=== PATIENT | female | born 1950 | race Caucasian/White ===

== ENCOUNTER 2020-07-16 03:23 | Observation (INO) | payer OTHER ==
[~2020-07-16] VITALS: Ht 167.6 cm; Wt 83.0 kg
[~2020-07-16 03:23] MED LIST: FENOFIBRATE54 M1; LAC PO; LEVOTHYROXIN0.025 M2; LEVOTHYROXIN0.025 M2 PO; LOMOTIL1 TAB PO; MAC100 PO; PRILOSEC OTC20 M1 PO; PRILOSEC20 MG; TRAZODONE50 M1 PO; TRICOR48 M1 PO; ZES10 PO; ZOF4 PO
[2020-07-16 07:14] LABS: CALCIUM 9.3 mg/dL (8.5-10.1); CARBON DIOXIDE 21.3 mmol/L (21-32); CHLORIDE SERUM 101 mmol/L (98-107); CREATININE SERUM 0.9 mg/dL (0.6-1.0); GFR1 > 60 mL/min; GLUCOSE SERUM 130 mg/dL (74-106); POTASSIUM SERUM 3.7 mmol/L (3.5-5.1); SODIUM SERUM 137 mmol/L (136-145)
[2020-07-16 07:22] LABS: ALBUMIN 3.8 g/dL (3.4-5.0); ALKALINE PHOSPHATASE 64 U/L (46-116); ALT/SGPT 39 U/L (14-59); AST/SGOT 32 U/L (15-37); BILIRUBIN TOTAL 0.31 mg/dL (0.20-1.00); MAGNESIUM 2.2 mg/dL (1.8-2.4); TOTAL PROTEIN, SERUM 7.8 g/dL (6.4-8.2)
--- NOTE | 2020-07-16 07:35 | NUR ---
REPORT GIVEN TO ADITI GARCIA
[2020-07-16 07:53] LABS: BASOPHIL % 0.2 % (0.2-1.3); PLATELET COUNT 377 x10^3mcL (179-408); RED CELL DISTRIBUTION WIDTH 13.6 % (12.3-17.7)
--- NOTE | 2020-07-16 08:23 | NUR ---
PT AWAKE, ALERT, RESP E/U. PT DENIES ANY CHEST PAIN, PALPITATIONS OR DIZZINESS. ON FULL CM, PULSE OX. IN CLEAR VIEW OF NURSING STATION.
--- NOTE | 2020-07-16 11:08 | NUR ---
PT MEDICATED PER ORDERS. PT IS AWAKE, ALERT, RESP E/U WITH NAD NOTED. SPOKE WITH PTS DAUGTHER AND PROVIDED UPDATE REGARDING PTS STATUS
--- NOTE | 2020-07-16 13:52 | NUR ---
PT AMBULATED TO THE RESTROOM.
--- NOTE | 2020-07-16 14:29 | NUR ---
PT REPORTING NAUSEA. WILL MEDICATE WITH IVP ZOFRAN
--- NOTE | 2020-07-16 19:35 | NUR ---
RECEIVED BEDSIDE REPORT FROM ADITI GARCIA. PATIENT AWAKE, ALERT, ORIENTED TIMES 4. NO COMPLAINT OF PAIN. BP 128/82 MAP 97. DATA SERVICES DEVELOPER SHOWS SINUS RHYTHM RATE 82/MIN. RESPIRATORY RATE 19/MIN.
--- NOTE | 2020-07-16 20:00 | NUR ---
RECEIVED PATIENT POST BEDSIDE REPORT. PATIENT ALERT, ORIENTED TIMES 4. DENIES PAIN. NO DYSPNEA PRESENT. SECURITY SHIFT MANAGER SHOWS SINUS RHYTHM RATE 87/MIN. BP 110/49 MAP 71
--- NOTE | 2020-07-17 00:03 | NUR ---
TOOK OVER PATIENT'S CARE. REPORTS HEADACHE
--- NOTE | 2020-07-17 05:01 | NUR ---
PT GIVEN WATER PER REQUEST. PT REPORTS WANTING TO GO HOME.WILL NOTIFY
--- NOTE | 2020-07-17 07:26 | NUR ---
REPORT RECIEVED FROM RADHA LOGAN. I WILL ASSUME FURTHER CARE OF THIS PT
--- NOTE | 2020-07-17 07:55 | NUR ---
NU CARDIO REGARDING ECHO ORDER, TECH WILL BE HERE IN AN HOUR WILL CALL BACK
--- NOTE | 2020-07-17 08:00 | NUR ---
PT NOTED LAYING IN ER GURNEY IN POSITION OF COMFORT. PT DENIES ANY CHEST PAIN, DIZZINESS OR HEADACHES AT THIS TIME. PT STATES HX OF ANXIETY AND STATES "I DONT KNOW IF THATS WHY I WAS FEELING LIKE THIS". PT AAOX4, RESP E/U ON ROOM AIR, O2SAT 98%. NO COUGH NOTED. PT AMBULATES WITH STEADY GAIT. WILL CONTINUE TO MONITOR
[2020-07-17 08:42] LABS: BASOPHIL % 0.4 % (0.2-1.3); PLATELET COUNT 389 x10^3mcL (179-408); RED CELL DISTRIBUTION WIDTH 13.6 % (12.3-17.7)
[2020-07-17 09:28] LABS: CALCIUM 8.9 mg/dL (8.5-10.1); CHLORIDE SERUM 99 mmol/L (98-107); CHOLESTEROL 140 mg/dL (<200); CREATININE SERUM 0.9 mg/dL (0.6-1.0); GFR1 > 60 mL/min; GLUCOSE SERUM 106 mg/dL (74-106); HDL CHOLESTEROL 46 mg/dL (40-60); POTASSIUM SERUM 3.6 mmol/L (3.5-5.1); SODIUM SERUM 135 mmol/L (136-145); TRIGLYCERIDES 138 mg/dL (<150)
--- NOTE | 2020-07-17 11:45 | NUR ---
PT REPORTS INTERMITENT NAUSEA AT THIS TIME, NO VOMITING NOTED. PT DENIES ANY HEADACHES OR DIZZINESS. VITAL SIGNS STABLE. PT AAOX4, SPEAKING IN FULL, CLEAR SENTENCES, NO DISTRESS NOTED. WILL CONTINUE TO MONITOR
--- NOTE | 2020-07-17 12:04 | NUR ---
RECEIVED REPORTS FROM AGNIESZKA GARCIA, AWAITING PT ARRIVAL ON UNIT.
--- NOTE | 2020-07-17 12:06 | NUR ---
REPORT CALLED TO JORDY GARCIA ON TELE UNIT. SHE WILL ASSUME FURTHER CARE OF THIS PT
--- NOTE | 2020-07-17 12:47 | NUR ---
PT ARRIVED ON UNIT AT 1235, ON [facility] ACCOMPANIED BY RN. TELE # [id number], NSR. PT IS AAOX4, CALM AND COOPERATIVE WITH CARE. BREATHING EVEN/UNLABORED ON RA, IN NO ACUTE RESP DISTRESS. VSS UPON ADMISSION. PT REPORTS FEELING NAUSEATED BUT SINCE ED NURSE GAVE HER ZOFRAN, FEELS MUCH BETTER. PT AMBULATORY, NO WEAKNESS NOTED. PT REPORTS NO PAIN, NO FURTHER CONCERNS VOICED AT THIS TIME. IV TO LH 20 G PATENT, CDI, SL. MRSA SWAB COLLECTED. BED IN LOWEST POSITION, CALL LIGHT IN REACH.
[2020-07-17 13:03] VITALS: BP 128/60
--- NOTE | 2020-07-17 14:42 | NUR ---
SPOKE WITH DR. SILVA AT BEDSIDE, PER DR. SILVA PT WILL BE DISCHARGED LATER TODAY. VERIFIED PHARMACY ON FILE. PT RESTING IN BED, BREATHING EVEN/UNLABORED ON RA. IN NO ACUTE DISTRESS. PT VOICES NO FURTHER CONCERNS AT THIS TIME. BED IN LOWEST POSITION, CALL LIGHT IN REACH.
[2020-07-17] MEDS ORDERED: ZOF4 PO (15:38)
[2020-07-17] MEDS ORDERED: METOPROLOL TART25 M1 PO (15:39)
[2020-07-17] MEDS ORDERED: PRILOSEC OTC20 M1 PO (15:39)
[2020-07-17] MEDS ORDERED: ASPIRIN FOR CHI81 M1 PO (15:40)
[2020-07-17 16:46] VITALS: BP 132/78
[2020-07-17 17:28] VITALS: BP 132/78
--- NOTE | 2020-07-17 18:00 | NUR ---
REVIEWED PAPERWORK WITH PT, WENT OVER FOLLOW UP APPT, NEW MEDS, AND EDUCATIONAL PACKET. PT VERBALIZED UNDERSTANDING. PT HAD NO FURTHER CONERNS/QUESTIONS. TELE #[id number] RETURNED BACK TO [employer]ARD[employer] ROSS IV LINE D/C'D. PT TO GO HOME WITH ALL BELONGINGS, AWAITING FOR RIDE.
== END 2020-07-17 18:18 | disposition home or self-care (01) ==
LOC: ED 03:23 → DU 09:40
PROVIDERS: Student in an Organized Health Care Education/Training Program; ADMIT Internal Medicine; ATTEND Internal Medicine
DX: I48.91 Unspecified atrial fibrillation (principal); U07.1 COVID-19; E03.9 Hypothyroidism, unspecified; I10 Essential (primary) hypertension; F41.9 Anxiety disorder, unspecified
CPT/HCPCS: 36600; 85378; G0378; J1650; J2405